=== PATIENT | male | born 1975 | race Hispanic/Latino ===

== ENCOUNTER 2024-03-30 00:38 | Emergency (ER) | payer BC ==
[2024-03-30 01:51] LABS: #Basophils 0.05 10x3/uL (0.0-0.2); #Eosinphils 0.06 10x3/uL (0.0-0.5); #Monocytes 0.58 10x3/uL (0.0-1.1); #Neutrophils 12.86 10x3/uL (1.5-8.4); %Basophils 0.4 % (0.0-2.0); %Eosinophils 0.4 % (0.0-6.0); %Lymphocytes 4.8 % (18.0-47.0); %Monocytes 4.1 % (0.0-10.0); %Neutrophils 89.9 % (40.0-75.0); Anion Gap 15 mmol/L (10-20); BUN (Urea Nitrogen) 14 mg/dL (8.9-20.6); Calc. Creatinine Clearance 0 mL/min (70-130); Calcium 9.8 mg/dL (7.8-10.44); Carbon Dioxide 20 mmol/L (22-29); Chloride 100 mmol/L (98-107); Estimated GFR 103; Glucose 112 mg/dL (70-105); Hematocrit 38.4 % (38.8-50.0); Hemoglobin 13.8 g/dL (13.5-17.5); Mean Corpuscular HGB CONC 35.9 g/dL (32.0-36.0); Mean Corpuscular Volume 91.9 fL (81.2-95.1); Mean Platelet Volume 9.9 fL (7.4-10.4); Platelet Count 185 10x3/uL (150-450); RBC Distribution Width 13.1 % (11.5-14.5); Red Blood Cell (RBC) Count 4.18 10x6/uL (4.32-5.72); Sodium 131 mmol/L (136-145); White Blood Cell (WBC) Count 14.3 10x3/uL (3.5-10.5)
[2024-03-30] MEDS ORDERED: Piperacillin/Tazobactam 3.375 GM VIAL ONE (02:09)
[2024-03-30] MEDS ORDERED: Ondansetron PF 4 MG/2 ML Vial ONE (02:22)
== END 2024-03-30 04:55 | disposition home or self-care (01) ==
LOC: CSHERS 00:38
DX: L03.116 Cellulitis of left lower limb (principal); I10 Essential (primary) hypertension; F17.210 Nicotine dependence, cigarettes, uncomplicated
CPT/HCPCS: 36415; 80048; 83605; 85025; 87040; 96374; J2405; J2543

== ENCOUNTER 2024-09-06 11:54 | Inpatient (IN) | payer BC ==
[2024-09-06] MEDS ORDERED: Ketorolac Tromethamine 30 MG (1 mL) VIAL ONE (12:34)
[2024-09-06] MEDS ORDERED: Cefepime 2 GM VIAL ONE (12:35)
[2024-09-06] MEDS ORDERED: Acetaminophen 500 MG TAB ONE (12:35)
[2024-09-06 12:50] LABS: Actual Bicarbonate (HCO3v) 22.4 mEq/L (22-28); Analyzer IN Cardio CS ER; Base Excess 0.5 mEq/L (-2 - +2); Calcium, Ionized (venous) 1.21 mmol/L (1.16-1.32); Chloride (VBG) 102 mmol/L (98-106); Hematocrit-VBG 49 % (42.0-52.0); Hemoglobin (Hb) 16.6 g/dL (13.1-17.2); Potassium (VBG) 4.03 mmol/L (3.70-5.30); Puncture Site Other Site; RapidComm Collect By LAB; Sodium 138 mmol/L (133-146); pH (venous) 7.497 (7.32-7.43)
[2024-09-06 12:57] LABS: #Basophils 0.04 10x3/uL (0.0-0.2); #Eosinophils 0.04 10x3/uL (0.0-0.5); #Monocytes 0.69 10x3/uL (0.0-1.1); #Neutrophils 14.62 10x3/uL (1.5-8.4); %Basophils 0.2 % (0.0-2.0); %Eosinophils 0.2 % (0.0-6.0); %Lymphocytes 3.8 % (18.0-47.0); %Monocytes 4.3 % (0.0-10.0); %Neutrophils 91.2 % (40.0-75.0); Hematocrit 45.4 % (38.8-50.0); Hemoglobin 15.4 g/dL (13.5-17.5); Mean Corpuscular HGB CONC 33.9 g/dL (32.0-36.0); Mean Corpuscular Hemoglobin 30.7 pg (27.0-33.0); Mean Corpuscular Volume 90.4 fL (81.2-95.1); Mean Platelet Volume 10.1 fL (7.4-10.4); Platelet Count 206 10x3/uL (150-450); RBC Distribution Width 12.3 % (11.5-14.5); Red Blood Cell (RBC) Count 5.02 10x6/uL (4.32-5.72); White Blood Cell (WBC) Count 16.1 10x3/uL (3.5-10.5)
[2024-09-06 13:12] LABS: ALT (SGPT) 57 U/L (8-55); AST (SGOT) 43 U/L (5-34); Albumin 4.5 g/dL (3.5-5.0); Alkaline Phosphatase 47 U/L (40-110); Anion Gap 16 mmol/L (10-20); BUN (Urea Nitrogen) 13 mg/dL (8.9-20.6); Bilirubin, Total 0.5 mg/dL (0.2-1.2); Calc. Creatinine Clearance 0 mL/min (70-130); Calcium 10.6 mg/dL (7.8-10.44); Carbon Dioxide 22 mmol/L (22-29); Chloride 103 mmol/L (98-107); Estimated GFR 102; Globulin 2.9 g/dL (2.4-3.5); Glucose 108 mg/dL (70-105); Potassium 4.1 mmol/L (3.5-5.1); Protein, Total 7.4 g/dL (6.0-8.3); Sodium 137 mmol/L (136-145)
[2024-09-06 15:16] LABS: Bilirubin Neg (Negative); Blood, Urine Negative (Negative); Clarity Clear (Clear); Glucose, Urine (Dipstick) Normal (Negative); Ketone, Urine Negative (Negative); Leukocyte Negative (Negative); Nitrite Negative (Negative); Protein, Urine (Dipstick) Negative (Neg-Trace); Urobilinogen Normal mg/dL (Less than 2)
[2024-09-06 15:32] LABS: RBC/HPF 0-3 HPF (0-3)
[2024-09-06 15:33] LABS: Bacteria/HPF Rare-Few HPF (None Seen); CAUTI Indications for Culture Fever or rigors; Mucous/LPF Rare LPF (<2+); Squamous Epithelial 0-3 HPF (0-3); WBC/HPF 0-3 HPF (0-3)
[2024-09-06 15:35] LABS: Urine Culture Reflex No No
[2024-09-06] MEDS ORDERED: traMADol HCl 50 MG TAB PO PRN (16:07)
[2024-09-06] MEDS ORDERED: Ketorolac Tromethamine 30 MG (1 mL) VIAL IVP PRN (16:07)
[2024-09-06 17:33] VITALS: BMI 33.2
[2024-09-06] MEDS: Vancomycin 2.5 GM in Sodium Chloride 0.9% 500 ML IVPB SCH (17:37)
[2024-09-06] MEDS: Sodium Chloride 0.9% 1,000 ML IV SCH (17:38)
[2024-09-06] MEDS: CEFAZOLIN 1 GM in Sodium Chloride 0.9% 100 ML IVPB SCH (21:59)
[2024-09-06] MEDS ORDERED: CEFAZOLIN 1 GM VIAL SLOW IVP SCH (22:00)
[2024-09-07] MEDS: Acetaminophen 325 MG TAB PO PRN (04:06)
[2024-09-07 04:51] LABS: #Basophils 0.05 10x3/uL (0.0-0.2); #Eosinophils 0.06 10x3/uL (0.0-0.5); #Monocytes 0.32 10x3/uL (0.0-1.1); #Neutrophils 7.86 10x3/uL (1.5-8.4); %Basophils 0.5 % (0.0-2.0); %Eosinophils 0.7 % (0.0-6.0); %Lymphocytes 9.8 % (18.0-47.0); %Monocytes 3.5 % (0.0-10.0); %Neutrophils 85.2 % (40.0-75.0); Hematocrit 38.3 % (38.8-50.0); Hemoglobin 13.5 g/dL (13.5-17.5); Mean Corpuscular HGB CONC 35.2 g/dL (32.0-36.0); Mean Corpuscular Hemoglobin 31.8 pg (27.0-33.0); Mean Corpuscular Volume 90.1 fL (81.2-95.1); Platelet Count 184 10x3/uL (150-450); RBC Distribution Width 12.1 % (11.5-14.5); Red Blood Cell (RBC) Count 4.25 10x6/uL (4.32-5.72); White Blood Cell (WBC) Count 9.2 10x3/uL (3.5-10.5)
[2024-09-07 05:10] LABS: Anion Gap 13 mmol/L (10-20); BUN (Urea Nitrogen) 13 mg/dL (8.9-20.6); Calc. Creatinine Clearance 160 mL/min (70-130); Calcium 9.4 mg/dL (7.8-10.44); Carbon Dioxide 21 mmol/L (22-29); Chloride 107 mmol/L (98-107); Estimated GFR 105; Glucose 95 mg/dL (70-105); Potassium 3.7 mmol/L (3.5-5.1); Sodium 137 mmol/L (136-145)
[2024-09-07] MEDS: Enoxaparin 40 MG (0.4 mL) SYRINGE SC SCH (08:47)
[2024-09-07 11:13] VITALS: BP 161/87; TEMP 98
== END 2024-09-07 14:11 | disposition home or self-care (01) | DRG 872 ==
LOC: CSHERS 11:54 → CSHTELE 16:05
PROVIDERS: ADMIT Internal Medicine; ATTEND Internal Medicine
DX: A41.9 Sepsis, unspecified organism (principal); L03.116 Cellulitis of left lower limb; F17.210 Nicotine dependence, cigarettes, uncomplicated
CPT/HCPCS: 36415; 36416; 80048; 80053; 81001; 82805; 83605; 85025; 87040; 87086; 87428; 94760; 96365; 96366; 96367; 96375; J0690; J0692; J1650; J1885; J3370; J7030